=== PATIENT | female | born 1970 | race Caucasian/White ===

== ENCOUNTER → 2020-05-24 10:18 | Outpatient (CLI) | payer BC, SELFPAY ==
[2020-05-25 10:20] LABS: Covid-19 Nasal PCR Sendout Lex NOT DETECTED
== END ==
PROVIDERS: PCP Family Medicine; Visit Provider Family Medicine
DX: Z03.818 Encounter for observation for suspected exposure to other biological agents ruled out (principal)
CPT/HCPCS: U0004

== ENCOUNTER → 2020-05-29 14:41 | Outpatient (CLI) | payer BC, SELFPAY ==
[2020-05-30 21:59] LABS: Covid-19 Nasal PCR Sendout Lex NOT DETECTED
== END ==
PROVIDERS: PCP Family Medicine; Visit Provider Family Medicine
DX: Z03.818 Encounter for observation for suspected exposure to other biological agents ruled out (principal)
CPT/HCPCS: U0004